=== PATIENT | male | born 1990 | race Caucasian/White ===

== ENCOUNTER 2017-02-14 22:29 | Inpatient (IN) | payer BC ==
[~2017-02-14] VITALS: Ht 180.3 cm; Wt 96.4 kg
[2017-02-14 23:00] LABS: HEMATOCRIT 45.1 % (42-52); MEAN CELL VOLUME 86.9 fL (80-100); MEAN CORPUSCULAR HEMOGLOBIN 28.1 pg (25-34); MEAN CORPUSCULAR HGB CONC 32.4 g/dl (32-36); MEAN PLATELET VOLUME 10.9 fL (7.4-10.4); PLATELET COUNT 298 K/uL (130-400); RED BLOOD COUNT 5.19 M/uL (4.7-6.1); WHITE BLOOD COUNT 5.62 K/uL (4.8-10.8)
[2017-02-14 23:26] LABS: URINE APPEARANCE CLEAR (CLEAR); URINE BILIRUBIN NEG (NEG); URINE COLOR YELLOW; URINE NITRITE NEG (NEG); URINE SPECIFIC GRAVITY 1.021 (1.000-1.030); UROBILINOGEN NEG (NEG); ZZUR CULT IF INDIC CLEAN CATCH NO
[2017-02-14 23:29] LABS: MANUAL MICROSCOPIC REQUIRED? NO; REVIEW REQ? NO
[2017-02-14 23:36] LABS: BUN/CREATININE RATIO 10.1 (10-20); CALCIUM 8.7 mg/dl (8.5-10.1); CREATININE 1.2 mg/dl (0.60-1.40); POTASSIUM 4.2 mmol/L (3.5-5.1)
[2017-02-14 23:38] LABS: ACETAMINOPHEN < 2 ug/ml (10-30)
[2017-02-14] MEDS ORDERED: BUPR-79 PO (23:40)
[2017-02-14] MEDS ORDERED: GABA-113 PO (23:40)
[2017-02-14 23:46] LABS: BENZODIAZEPINE, URINE NEG (NEG); COCAINE,URINE NEG (NEG); PHENCYCLIDINE, URINE NEG (NEG)
[2017-02-14 23:47] LABS: ALB/GLOB RATIO 1.7 (0.9-2); THYROID STIMULATING HORMONE 0.814 uIu/ml (0.300-4.500)
--- NOTE | 2017-02-14 23:51 | EMERGENCY ROOM VISIT NOTE ---
History Report prepared by Christina: Neda Foss Under the Supervision of: Dr. Mata Ventura M.D. 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 The patient states that he is prescribed gabapentin and Wellbutrin. The patient states he believes he took about 10 tablets of 300 mg Gabapentin and 4 tablets of 150 mg Wellbutrin. The patient states that when he woke up after taking the tablets he felt groggy and his pupils were dilated. The patient states that he has had suicidal ideation in the past and tried to overdose on medication about 6 months ago. He states he received inpatient treatment after his last overdose and is willing to receive inpatient treatment again. The patient states that he has been dealing with the the of family members lately and is expecting a child with his fiance causing him increased stress. The patient states he has no other medical problems such as kidney, liver, spleen or heart problems. 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 Review of Systems See HPI for pertinent positives & negatives. A total of 10 systems reviewed and were otherwise negative. Past Medical & Surgical Medical Problems: (1) Overdose Family History Patient reports no known family medical history. Social History Smoking Status: Never Smoker Marital Status: in relationship Housing Status: lives with significant other Occupation Status: employed Current/Historical Medications Scheduled Bupropion (Wellbutrin Sr), 150 MG PO DAILY Gabapentin (Neurontin), 300 MG PO BID Allergies Coded Allergies: No Known Allergies (Unverified , 02/14/17) Physical Exam Vital Signs Date Time Temp Pulse Resp B/P (MAP) Pulse Ox O2 Delivery O2 Flow Rate FiO2 02/15/17 00:32 73 16 111/70 99 Room Air 02/14/17 23:03 84 02/14/17 22:34 36.8 88 18 152/87 97 Room Air Physical Exam GENERAL: Patient is in no acute distress. HEENT: No acute trauma, normocephalic atraumatic, mucous membranes moist, no nasal congestion, no scleral icterus. Pupils are equal and reactive to light. NECK: No stridor, no adenopathy, no meningismus, trachea is midline. LUNGS: Clear to auscultation bilaterally, no wheeze, no rhonchi, breath sounds equal. HEART: Without murmurs gallops or rubs, regular rate and rhythm. ABDOMEN: Soft, nontender, bowel sounds positive, no hernias, no peritonitis. EXTREMITIES: No cyanosis or edema, full range of motion of all the joints without pain or difficulty, no signs for acute trauma. NEUROLOGIC: Oriented x 3, no acute motor or sensory deficits, no focal weakness. SKIN: No rash, no jaundice, no diaphoresis. PSYCH: Cooperative, admits to suicidal ideation and overdosing on pills earlier today. Medical Decision & Procedures Laboratory Results 02/14/17 22:51 02/14/17 22:51 Test 02/14/17 00:00 02/14/17 22:51 Urine Color YELLOW Urine Appearance CLEAR (CLEAR) Urine pH 8.0 (4.5-7.5) Urine Specific Lyndon 1.021 (1.000-1.030) Urine Protein NEG (NEG) Urine Glucose (UA) NEG (NEG) Urine Ketones NEG (NEG) Urine Occult Blood NEG (NEG) Urine Nitrite NEG (NEG) Urine Bilirubin NEG (NEG) Urine Urobilinogen NEG (NEG) Urine Leukocyte Esterase NEG (NEG) Urine Opiates Screen NEG (NEG) Urine Methadone, Qualitative NEG (NEG) Urine Barbiturates NEG (NEG) Urine Phencyclidine (PCP) Level NEG (NEG) Ur Amphetamine/Methamphetamine NEG (NEG) MDMA (Ecstasy) Screen NEG (NEG) Urine Benzodiazepines Screen NEG (NEG) Urine Cocaine Metabolite NEG (NEG) Urine Marijuana (THC) NEG (NEG) Red Blood Count 5.19 M/uL (4.7-6.1) Mean Corpuscular Volume 86.9 fL (80-100) Mean Corpuscular Hemoglobin 28.1 pg (25-34) Mean Corpuscular Hemoglobin Concent 32.4 g/dl (32-36) RDW Standard Deviation 40.2 fL (36.4-46.3) RDW Coefficient of Variation 12.5 % (11.5-14.5) Mean Platelet Volume 10.9 fL (7.4-10.4) Anion Gap 8.0 mmol/L (3-11) Est Creatinine Clear Calc Drug Dose 110.7 ml/min Estimated GFR () 96.1 Estimated GFR (Non- 83.0 BUN/Creatinine Ratio 10.1 (10-20) Calcium Level 8.7 mg/dl (8.5-10.1) Total Bilirubin 0.7 mg/dl (0.2-1) Aspartate Amino Transf (AST/SGOT) 23 U/L (15-37) Alanine Aminotransferase (ALT/SGPT) 29 U/L (12-78) Alkaline Phosphatase 110 U/L (45-117) Total Protein 7.2 gm/dl (6.4-8.2) Albumin 4.5 gm/dl (3.4-5.0) Globulin 2.7 gm/dl (2.5-4.0) Albumin/Globulin Ratio 1.7 (0.9-2) Thyroid Stimulating Hormone (TSH) 0.814 uIu/ml (0.300-4.500) Salicylates Level < 1.7 mg/dl (2.8-20) Acetaminophen Level < 2 ug/ml (10-30) Ethyl Alcohol mg/dL < 3.0 mg/dl (0-3) Laboratory results reviewed by me. ECG Indication: toxicologic Rate (beats per minute): 81 Rhythm: normal sinus Findings: no acute ischemic change, no ectopy ED Course 2248: The patient was evaluated in room C3. A complete history and physical exam was performed. 2247: I discussed the case with uSnita from the poison control center and she states there should be no problem now from what he ingested. 2347: The patient is medically cleared for psychiatric placement. The case packer states that someone from [address] [place] [address] will be down to evaluate the patient for placement. 2357: The patient was accepted at [address] [place] [address] for further inpatient psychiatric treatment. Medical Decision The patient is a 26 year old male who presents to the ED with complaints of an intentional overdose. Differential diagnoses considered include suicidal ideation, thyroid disorder, drug and alcohol abuse, electrolyte imbalance, dysrhythmia, anemia. There is no leukocytosis or concerning anemia. No significant electrolyte abnormality, kidney failure, hepatitis. The patient appears to be in a euthyroid state. Urinalysis does not show infection. Urine tox is negative. Aspirin, alcohol and Tylenol levels are undetectable. EKG shows a normal sinus rhythm, no acute ischemia, no dysrhythmia. The patient presents after ingesting extra gabapentin and Wellbutrin. This occurred around 17 or 18 hours ago and he is doing well. I did contact the poison center, he is out of the window for any issues and can be admitted directly to psychiatry. The patient was felt medically clear. He will be seen by 3 S. for resumed inpatient admission/observation. He will be brought in voluntarily. Medication Reconciliation: I attest that I have personally reviewed the patient' s current medication list. Blood Pressure Screening: Patient was found to have an elevated blood pressure and was referred to their primary doctor for recheck and further treatment. Impression Primary Impression: Suicidal ideation Additional Impression: Medication overdose Scribe Attestation The scribe's documentation has been prepared under my direction and personally reviewed by me in its entirety. I confirm that the note above accurately reflects all work, treatment, procedures, and medical decision making performed by me. Departure Information Dispostion [facility] ([address] [place] [address]) Referrals No Doctor, Assigned (PCP) Patient Instructions My [facility] Problem Qualifiers
[2017-02-15 00:32] VITALS: O2SAT 99
[2017-02-15] MEDS ORDERED: NURSING VERBAL MED ORDER ONE (00:45)
[2017-02-15 01:04] VITALS: BP 135/86; PULSE 65; TEMP 36.4; Ht 180.3 cm; Wt 96.4 kg
[2017-02-15] MEDS ORDERED: hydrOXYzine HCL 25 MG TAB PO PRN (01:45)
[2017-02-15] MEDS ORDERED: BISMUTH SUBSALICYLATE PER ML OMNICELL CHARGE PO PRN (01:45)
[2017-02-15] MEDS ORDERED: SODIUM CHLORIDE 0.65% NA SOLN 45 ML (OCEAN) PRN (01:45)
[2017-02-15] MEDS ORDERED: ALUMINUM/MAGNESIUM SUSP 30 ML UDC PO PRN (01:45)
[2017-02-15] MEDS ORDERED: MAGNESIUM HYDROXIDE SUSP 30 ML UDC PO PRN (01:45)
[2017-02-15] MEDS ORDERED: ACETAMINOPHEN 325 MG TAB PO PRN (01:45)
[2017-02-15 06:51] VITALS: BP_SYST 120; BP_DIAS 72; BP_DIAS 79; PULSE 71; PULSE 75; TEMP 36.3
--- NOTE | 2017-02-15 12:16 | Psychiatric History & Physical ---
History Date of Service Feb 15, 2017. Identifying Data Ken John is a 26-year-old male who currently lives with his fiance and her 5 year old son in [place], [place]. Ken John was admitted on a 201 voluntary commitment. Patient is admitted from home. The patient was brought to the ED family. Information provided by the patient is considered to be reliable. Chief Complaint "I took an overdose". History of Present Illness Patient reports depressed mood for the past couple weeks. He has been considering suicide "off and on" for that 2 week period. He reports stress in his relationship with his fiance who is and due in May. He works at [employer] on Wednesday, Wednesday and Wednesday from 5 pm to 5 am. After getting home from work on Wednesday morning he reports that he took an overdose of his prescribed Gabapentin 300 mg (10 pills) and Wellbutrin 150 (5 pills) in a suicide attempt. He went to bed and when he woke up, he was groggy and pupils were dilated. His fiance brought him to the ER. During the ride to the ER he reports feeling anxious and like his whole body was "tingling" and asked fiance to hurry. He endorses depressed mood, lack of interest in doing things, difficulty concentrating, low energy and motivation, difficulty sleeping (able to fall asleep but wakes up frequently during the night), feeling of hopeless since the beginning of January with worsening of the past 2 weeks and experiencing symptoms every day. He often feels anxious and worries about having a baby, his relationship with is fiance, finances. He feels like his heart is beating fast, feels short of breath, jittery and can not concentrate. 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 He was hospitalized in September 2016 at [facility] for a week after a an overdose on his prescribed medication in a suicide attempt. Before his hospitalization he was under care by a psychiatrist at [facility] in [place] since July when he was required by his [employer] unit to seek care for suicidal ideation. He was taking medication which he does not recall and used this medication in a suicide attempt in September. During his stay at [facility] he was started on Seroquel and another medication that he does not remember. He went to [address] Reyes, a psychiatrist in [place], after his hospitalization. He decided that he could no longer drive to [place] and did not want to go back to [facility] and so he saw a PCP, Dr. John, in [place], [place] one time in October and because he had gained 20 pounds on the Seroquel, he stopped taking it and was prescribed Gabapentin and Wellbutrin. He has not returned for followup with Dr. John. He initially felt like the medication was helpful but now does not believe that it was. Patient reports that he has a diagnosis of bipolar disorder and says that Dr. Reyes diagnosed bipolar disorder due to his spending a lot of money (reports spending $5000 over a 3 year period buying things on the internet including games and 2 guns) and getting upset/angry and yelling when he is anxious. Patient reports that due to his diagnosis, depression and suicidal ideation, he has not had access to guns or vehicles when he goes to [email or web address] since July and they required treatment as above. He reports that his sister has his guns and they are hidden and locked and he has no access to them. Patient does not describe classic manic symptoms and denies discrete periods of lack of need for sleep, grandiosity, increase in goal directed or risk taking behavior. He denies symptoms consistent with OCD, eating disorder. He denies history of violence toward others within the past 6 months or ever. He denies any history of [id number] behavior such as cutting or burning himself. . Past Psychiatric History Current OP Treatment: therapist ([facility] in [place] weekly since but missed last 1 or 2 appointments) Prior Psych Hospitalizations: other ([facility] in [place] September 2016 and [facility] when he was 17) Access to a Gun: No (sister has secured his guns as required by [email or web address]) Suicide Attempts: Yes Past Medication Trials [facility] when he was 17 reported started inpatient but he did not take it after being discharged from the hospital and also did not follow up with any outpatient appointments Seroquel - Gained 20 pounds in 1-2 months Lexapro? Past Medical/Surgical History History of Concussion/Seizure: No Allergies Allergies: Coded Allergies: No Known Allergies (Unverified , 02/14/17) Home Medications Scheduled Bupropion (Wellbutrin Sr), 150 MG PO DAILY Gabapentin (Neurontin), 300 MG PO BID Family History Patient reports no known family medical history. History of Suicide: No History of Substance Abuse: Yes (dad former alcoholic) Psychiatric History: No Alcohol Use Alcohol Use In Past 12 Months: No (drinks 6 pack of beer over the course of a week. Last drink a week ago. ) AUDIT Total Score: 3 Smoking Use Smoking Status: Never Smoker Substance History Patient denies use of street drugs, abuse of over the counter of prescription medications within the past 6 months or ever. Personal History Childhood: Patient when he was 5 year old. Has an sister age 30. Family lives nearby and reports that he gets along with them. Education: graduated from high school ([employer] 2008) Relationship History: other (lives with bebe and her 5 year old son from another relationship) Children: baby boy is due in May 2017 Spiritual Affiliation: none Legal History: none (denied) Psychological Trauma History: Other (loss of multiple friends (2 due to drug overdose in 2011) and 2 other friends suicide one by gunshot and one by hanging) Review of Systems Constitutional: no symptoms reported Eyes: reports: no symptoms Cardiovascular: reports: no symptoms reported Respiratory: reports: no symptoms reported Gastrointestinal: no symptoms reported Genitourinary - Male: reports: no symptoms Musculoskeletal: no symptoms reported Integumentary: no symptoms reported Neurologic: reports: no symptoms Endocrine: no symptoms Hematologic / Lymphatic: no symptoms Examination Physical Examination Physical exam by Dr. Mata Ventura performed in the ER was reviewed and accepted for our purposes on the [facility]. Vital Signs Vital Signs Past 12 Hours Date Time Temp Pulse Resp B/P (MAP) Pulse Ox O2 Delivery O2 Flow Rate FiO2 02/15/17 06:51 36.3 71 16 120/72 75 120/79 02/15/17 01:04 36.4 65 16 135/86 02/15/17 00:32 73 16 111/70 99 Room Air Laboratory Results Last 24 Hours Test 02/14/17 22:51 White Blood Count 5.62 K/uL Red Blood Count 5.19 M/uL Hemoglobin 14.6 g/dL Hematocrit 45.1 % Mean Corpuscular Volume 86.9 fL Mean Corpuscular Hemoglobin 28.1 pg Mean Corpuscular Hemoglobin Concent 32.4 g/dl RDW Standard Deviation 40.2 fL RDW Coefficient of Variation 12.5 % Platelet Count 298 K/uL Mean Platelet Volume 10.9 fL Sodium Level 147 mmol/L Potassium Level 4.2 mmol/L Chloride Level 108 mmol/L Carbon Dioxide Level 31 mmol/L Anion Gap 8.0 mmol/L Blood Urea Nitrogen 12 mg/dl Creatinine 1.20 mg/dl Est Creatinine Clear Calc Drug Dose 110.7 ml/min Estimated GFR () 96.1 Estimated GFR (Non- 83.0 BUN/Creatinine Ratio 10.1 Random Glucose 78 mg/dl Calcium Level 8.7 mg/dl Total Bilirubin 0.7 mg/dl Aspartate Amino Transf (AST/SGOT) 23 U/L Alanine Aminotransferase (ALT/SGPT) 29 U/L Alkaline Phosphatase 110 U/L Total Protein 7.2 gm/dl Albumin 4.5 gm/dl Globulin 2.7 gm/dl Albumin/Globulin Ratio 1.7 Thyroid Stimulating Hormone (TSH) 0.814 uIu/ml Salicylates Level < 1.7 mg/dl Acetaminophen Level < 2 ug/ml Ethyl Alcohol mg/dL < 3.0 mg/dl Mental Examination During interview pt is: alert and oriented Appearance: appropriately dressed, disheveled Eye contact is: good Motor behavior is: steady gait & station, no abnormal motor movements Speech: normal in rate, rhythm & volume Affect: mood congruent Mood is: depressed Thought process: goal directed, linear, logical, clear, coherent Thought content: hopelessness, guilt Suicidal thought are: present, Plan: present, Intent: present Homicidal thoughts are: denied Hallucinations: denies auditory, denies visual Cognition: memory grossly intact, language grossly intact Intelligence estimated to be: average Insight: impaired Judgement: impaired Impression / Recommendations Impression Patient is a 26 year old male with a history of depression and previous suicide attempt. He is experiencing multiple stressors including relationship problems with finance who is , deaths of multiple friends and family members over the past several years, financial stress and stress related to his service in the [employer]. He currently meets criteria for MDD, severe without psychotic features. Patient reports a history of diagnosis of bipolar disorder but does not describe symptoms associated with classic aury. He is continuing to endorse suicidal thoughts with intention to overdose if he were not in the hospital and therefore due to risk of harm to himself, he required inpatient mental health treatment. Inventory Assets Strengths: willingness for treatment, Needs: Outpatient psychiatrist and continued therapy. Risk Factors Assessment Male: Yes Access to guns: No Health problems: No Mental Health Diagnoses: Yes Substance use disorders: No Previous attempt: Yes Previous attempt;highly lethal: Yes Previous attempt; planned: Yes Family history of suicide: No Previous psychiatric stay: Yes Hopelessness: Yes Smoker: No Protective Factors Assessment Sikh beliefs: No Responsible for young children: Yes Employed: Yes Stable relationships: Yes Recommendations (1) Suicidal ideation 02/15 -Patient admitted to locked unit with q 15 minute safety checks (2) Depressive disorder 02/15 - Will obtain records from hospitalization and treatment in September of 2016. Patient reports taking seroquel and another medication. found seroquel helpful but gained 20 pounds in 1-2 months. Need additional information about past med trials. - Staff to obtain collateral information from his fiance and possibly his mother. Also would be helpful to obtain information from therapist. Patient expresses concern for bipolar disorder but does not describe symptoms consistent with manic episode and so additional information needed. - He will need a family meeting with his fiance -Encourage participation in individual and group therapy. - Will wait for record from past treatment and collateral from family before starting medication due to report of bipolar diagnosis although history not consistent with this diagnosis. (3) MANJIT (generalized anxiety disorder) 02/15 -vistaril prn for now until able to review prior records - individual and group therapy -assist patient to learn healthy coping skills. CPT Code Initial Hospital Care: [id number]
[2017-02-16 06:48] VITALS: BP_SYST 103; BP_DIAS 66; BP_DIAS 68; PULSE 53; PULSE 58; TEMP 36.7
--- NOTE | 2017-02-16 09:20 | Psychiatric Progress Notes ---
Progress Note Date of Service Feb 16, 2017. Interval History Ken John is a 26-year-old male who currently lives with his filaura and her 5 year old son in [place], [place]. Ken John was admitted on a 201 voluntary commitment. He was admitted from home after a suicide attempt by overdose on his prescribed Wellbutrin and Gabapentin. Chief Complaint "really depressed". Subjective Patient was seen & assessed interval progress reviewed with nursing. Patient spent most of his first day sleeping. He did begin to engage in unit programming on the evening shift. He is cooperative and stated that his goal is getting on the right medication. Today reports that he continues to be very depressed. He continues to have suicidal ideation but denies plan or intention. He is worried that a meeting with his fiance will cause more stress and relates the she "has been getting upset about little things lately." Explain that we generally recommend family meeting to assist with communication and help provide support for patients and that if necessary this can be done by phone. He is agreeable to a meeting at some point. Tonio works the same hours and days that the patient does at [employer]. She worked until 5 am this morning. Staff is going to call her later this morning. Spoke with patient's therapist Alonzo Lepe. Therapist reports poor compliance with appointments. Started seeing patient in July 2016 upon recommendation of patient's [employer]. Mr. Lepe sees patient as depressed and anxious (not bipolar) with cluster B traits. Therapist has release to speak with Mariah Ta who coordinated behavioral health services for the [employer]. He reports appointment compliance to her. Patient last seen by therapist on January 06. He no showed for his appointments on January 15 and February 03. Feels that patient's filaura may have influence over his compliance. Patient saw Dr. Aly John once in early December and started on Wellbutrin 150 mg. Patient reported to me that he did not feel this medication helpful and is does have significant anxiety. Today meeting with patient he agrees to start Lexapro for his depression and anxiety. Review of Systems negative except psychiatric symptoms as above Psychiatric: + depression symptoms, + anxiety Sleep Information Total Hours of Sleep: 6.00 Meal Information Percent of Breakfast Consumed: 50 Percent of Lunch Consumed: 100 Percent of Dinner Consumed: 100 Mental Status Exam During interview pt is: alert and oriented Appearance: appropriately dressed Eye contact is: good Motor behavior is: steady gait & station, no abnormal motor movements Speech: normal in rate, rhythm & volume Affect: mood congruent Mood is: depressed Thought process: goal directed, linear, logical, clear, coherent Thought content: hopelessness, guilt Suicidal thought are: present, Plan: denied, Intent: denied Homicidal thoughts are: denied Hallucinations: denies auditory, denies visual Cognition: memory grossly intact, language grossly intact Intelligence estimated to be: average Insight: impaired Judgement: impaired Impression Patient is a 26 year old male with a history of depression and previous suicide attempt. He is experiencing multiple stressors including relationship problems with finance who is , deaths of multiple friends and family members over the past several years, financial stress and stress related to his service in the [employer]. He currently meets criteria for MDD, severe without psychotic features. Patient reports a history of diagnosis of bipolar disorder but does not describe symptoms associated with classic aury. He is continuing to endorse suicidal thoughts with intention to overdose if he were not in the hospital and therefore due to risk of harm to himself, he required inpatient mental health treatment. Plan (1) Suicidal ideation 02/15 -Patient admitted to locked unit with q 15 minute safety checks (2) Depressive disorder 02/15 - Will obtain records from hospitalization and treatment in September of 2016. Patient reports taking seroquel and another medication. found seroquel helpful but gained 20 pounds in 1-2 months. Need additional information about past med trials. - Staff to obtain collateral information from his fiance and possibly his mother. Also would be helpful to obtain information from therapist. Patient expresses concern for bipolar disorder but does not describe symptoms consistent with manic episode and so additional information needed. - He will need a family meeting with his fiance -Encourage participation in individual and group therapy. - Will wait for record from past treatment and collateral from family before starting medication due to report of bipolar diagnosis although history not consistent with this diagnosis. 02/16 - supplemental information from patient's therapist Alonzo Lepe. Agrees that patient does not present as bipolar but as depressed and anxious with cluster b personality traits. He is wiling to continue working with patient even though he has poor compliance with appointments. -Start Lexapro 10 mg daily (see consent under MANJIT) (3) MANJIT (generalized anxiety disorder) 02/15 -vistaril prn for now until able to review prior records - individual and group therapy -assist patient to learn healthy coping skills. 02/16 - start Lexapro. Reviewed risks benefits and alternatives as well as black box josé miguel for suicidality. Patient accepts so will start at 10 mg daily and titrate as tolerated. -will resume gabapentin patient prescribed this for Restless leg which is is not complaining about her but it may be helpful for anxiety. Discharge / Aftercare Planning Primary Care Physician: Name: Dr John Therapist: Name: Alonzo Lepe Gravel Roofer: Name: irving Visit Code E&M Code: 10562 Inventory Assets Strengths: willingness for treatment, Needs: Outpatient psychiatrist and continued therapy. Risk Factors Assessment Male: Yes Health problems: No Mental Health Diagnoses: Yes Substance use disorders: No Previous attempt: Yes Previous attempt;highly lethal: Yes Previous attempt; planned: Yes Family history of suicide: No Previous psychiatric stay: Yes Hopelessness: Yes Smoker: No Protective Factors Assessment Moravian beliefs: No Responsible for young children: Yes Employed: Yes Stable relationships: Yes Data Vital Signs Last 24 Hrs: Date Time Temp Pulse Resp B/P (MAP) Pulse Ox O2 Delivery O2 Flow Rate FiO2 02/16/17 06:48 36.7 53 16 103/66 58 103/68 Meds Administered Last 24 Hrs: Current Inpatient Medications Medications (Trade) Dose Ordered Sig/Mariano Route Start Time Stop Time Status Last Admin Dose Admin Acetaminophen (Tylenol Tab) 650 mg Q4H PRN PO 02/15/17 01:45 03/17/17 01:44 Al Hydroxide/Mg Hydroxide (Maalox Susp) 30 ml Q4H PRN PO 02/15/17 01:45 03/17/17 01:44 Bismuth Subsalicylate (Kaopectate Liqd) 15 ml DAILY PRN PO 02/15/17 01:45 03/17/17 01:44 Magnesium Hydroxide (Milk Of Magnesia Susp) 30 ml DAILY PRN PO 02/15/17 01:45 03/17/17 01:44 Sodium Chloride ([place] Nasal [place]) PRN PRN NA 02/15/17 01:45 03/17/17 01:44 Hydroxyzine HCl (Vistaril Tab) 50 mg HSZ PRN PO 02/15/17 01:45 03/17/17 01:44 Hydroxyzine HCl (Vistaril Tab) 25 mg Q4H PRN PO 02/15/17 01:45 03/17/17 01:44
[2017-02-16] MEDS ORDERED: ESCITALOPRAM OXALATE 10 MG TAB PO ONE (11:07)
--- NOTE | 2017-02-16 14:05 | Medical Student: BHU Only ---
Psychiatric Progress Note IDENTIFYING DATA: Ken John is a 26-year-old male who currently lives in [place], [place] with his fiance and her 5 year old son Say. Ken John was admitted to the [facility] on a 201 voluntary commitment. CHIEF COMPLAINT: "feeling homesick". SUBJECTIVE: Ken, with a pertinent PMHx of anxiety, depression, and reported bipolar disorder, states that two days ago he intentionally overdosed on Wellbutrin and gabapentin after two weeks of a progressive sadness and and hopelessness. Ken notes associated symptoms of distractibility, decreased concentration, feeling depressed, having "no energy," and a significant decrease in interests. He also reports a significant decrease in appetite, noting he used to "eat a lot, but for the last week I have eaten barely nothing," but he denies any noticeable weight change. Ken reports that his current symptoms are attributable to several stresses in his life, most notably financial, his commitment to the [employer], and his fiance who is (due in May). Ken states that he has been seeing a therapist (Alonzo Lepe) weekly since July 2016, but missed his last two appointments from "feeling good, and wanting to get other things done those days." Ken notes a history of bipolar disorder as diagnosed by Dr. Reyes, prior to his [facility] in-patient stay in [place], and during follow-up appointments afterwards. He notes that he has a history of spending "excess money," and talking quickly that lead to this bipolar diagnosis. Ken states that he has a history of being "hyperactive," being goal directed, and only sleeping 4-6 hours a night at baseline. Ken denies having a "manic symptoms, " but reports that his mother and sister created a list of previous symptoms that coincided with "aury," that they showed to Dr. Reyes. Since being in-patient Ken has described feelings of anxiety, causing some GI discomfort. Ken reports that he was "nervous, hearing people in the hallway who might want to talk to him." He states that he generally keeps to himself, does not want to discuss his feelings/mood with others (specifically noting not telling his fiance about his suicidal ideations). Ken notes that now that he is in-patient he is more willing to talk to people about what has been going on , but still reports sweaty palms and some shortness of breath when being interviewed. He states that he attended group therapy today, but did not say much, mentioning that he prefers to listen to other people. Ken reports that he talked with his fiance this morning and set up a family meeting for tomorrow (02/17/2017) for 1:30pm. He said that it was "nice to hear her voice," and now reports being "homesick." Ken reports that his filaura gets "worked up" and "anxious" over the , and passes that anxiety on to him. Ken says he enjoys living with his filaura's biological son from a previous relationship and being a father figure to him. Ken talked about how his friends have tried to convince him to quit the [employer], but he still continues to want to be apart of it. He states that he makes less money during his [employer] weekends (1 weekend a month) , since he has to miss work at the [employer] during those weekends, but he it is also an "escape" for him. 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 Ken states that his father, mother, step-father, sister, and nephew all live in the area and are a good support for him. However, he notes he has not told him of his current in-patient hospital stay here. He says he "does not want to add to their burden," as his aunt 2 weeks ago, and his step-brother is currently in-patient in [place] after a recent car accident. Ken reports his goals for in-patient is to have his medications changed to better control his anxiety and depression. He states that his Wellbutrin/ Neurotin were started in October after failing Seroquel (secondary to side effect of significant weight gain of 20 pounds). He also notes his strengths in his recovery are being a "caring person," and a father figure to Say ( his bebe's 5 year old son). Ken denies current suicidal ideations, any history of homicidal ideations, decreased need for sleep, irritability, racing thoughts, pressured speech, grandiose behavior, and recent history of crying. Risk of violence to self within the last 6 months: yes, intentional overdose 2 days ago. Risk of violence to others within the last 6 months: patient denies. OBJECTIVE: sleep: 6 hours last night, but slept most of the day yesterday appetite: 65% of meals (breakfast, lunch, and dinner). CURRENT MEDICATIONS: 1. Home: a. Wellbutrin (Bupropion HCl) 150 mg daily b. Neurotin (Gabapentin) 300mg BID 2. In-patient: a. Escitalopram Oxalate (Lexapro Tab) 10mg once on 02/16/2017 PAST PSYCHIATRIC HISTORY: Current outpatient mental health treatment: therapist, Alonzo Lepe, but has not seen for 2 weeks. Prior psychiatric hospitalizations: twice for SI, once at [facility] in [place] in September 2016 (Dr. Reyes), and once at [facility] in [place] when he was 17 after breaking up with his girlfriend. Prior medication trials: Seroquel, but caused a "30 pound weight gain in 2 months." Prior suicide attempts: intentional overdose on prescription pills with in- patient psychiatric stay at [facility]. Access to weapons: patient denies. Patient reports that his weapons were secured through the [employer]. FAMILY HISTORY: Mental Health: patient states father has undiagnosed depression Suicide: patient denies Medical history: patient denies SUBSTANCE USE HISTORY: Tobacco use hx: patient chews tobacco, about 1/2 can a day for 10 years Caffeine use hx: patient drinks 2 "monsters" a day Alcohol use hx: patient drinks about one "6-pack a week" Patient denies all other substance use. ROS: 10 systems reviewed an all are negative, except as follows CONSTITUTIONAL: sweaty palms. RESPIRATORY: "anxiety related shortness of breath from talking too much" GASTROINTESTINAL: "stomach hurting from feeling anxious." MENTAL STATUS EXAM: Appearance is that of a neatly groomed casually dressed male who appears his stated age. The patient is generally very cooperative with the interview. Eye contact is good. Motor behavior is no abnormal motor movements. Speech: normal rate, normal volume, normal tone, and articulate. Affect: full, ranging from laughing/smiling to anxious when talking about his fiance/medical history. Mood: "homesick". Thought process: clear, coherent, goal directed. Thought content: reality based without delusions, denies SI, denies HI. Perception: denies illusions, denies hallucinations. Cognition: memory, language, and attention appear grossly intact. Intelligence is estimated to be average. Insight is estimated to be mostly intact as Ken realizes that he needs to get help and change his medications so he can "feel better" in time for the of his son in May. Judgment is estimated to be impaired from his decision to overdose 2 days ago, still rating his mood as 6/10 and anxious. DIAGNOSTIC IMPRESSION: Ken is 26 years old, with a PHMx of anxiety and depression, had an intentional overdose 2 days ago, associated with feeling depressed for the last two weeks. Ken reports many stress in his life, notably the upcoming of his son, financial, position in the [employer], and his anxious fiance. In his current state, he meets severe MDD criteria without psychotic features. A previous hospitalization at [facility] gave him the diagnosis of bipolar disorder, but he does not seem to specifically meet the criteria. DSM-V DIAGNOSIS: MDD and MANJIT RECOMMENDATIONS: 1. MDD with associated generalized anxiety disorder a. Start Lexapro 10 mg daily for depression and Vistaril PRN for anxiety. b. Encourage Ken to participate in group sessions c. Work on obtaining previous [facility] hospitalization records from his stay in September 2016 2. Safety a. Suicide precautions with q15min checks will be maintained to help provide for patient safety while in the hospital. 3. Aftercare Planning: a. We will contact Alonzo Lepe to coordinate out-patient care and follow-up to see if he will continue to see Ken as a patient. b. We will work on setting up out-patient psychiatric services for Ken. Date of Service: Feb 16, 2017.
[2017-02-16] MEDS: GABAPENTIN 300 MG CAP PO SCH (17:32)
[2017-02-16] MEDS: hydrOXYzine HCL 25 MG TAB PO PRN (21:18)
[2017-02-17 06:42] VITALS: BP_SYST 108; BP_SYST 140; BP_DIAS 72; BP_DIAS 81; PULSE 44; PULSE 45; TEMP 36.4
--- NOTE | 2017-02-17 08:10 | Psychiatric Progress Notes ---
Progress Note Date of Service Feb 17, 2017. Interval History Ken John is a 26-year-old male who currently lives with his fiance and her 5 year old son in [place], [place]. Ken John was admitted on a 201 voluntary commitment. He was admitted from home after a suicide attempt by overdose on his prescribed Wellbutrin and Gabapentin. Chief Complaint "[]". Subjective Patient was seen & assessed interval progress reviewed with Treatment Team. Staff report he had a meeting with his fiance yesterday, who was supportive, but stated she did not understand what he was going through. He discussed his fears that his fianc will leave him, which did not appear reality based. They discussed stress related to her , with their baby due in May. They also have financial strain, and suggestions were made for ways to locate local resources for baby items. They also discussed the stress stemming from the patient's involvement in the [employer] and his conflicted feelings about this. He currently has restrictions in that he cannot drive or carry weapons, and there are no weapons in the home. He agreed to a referral for outpatient psychiatry. His safety plan was reviewed, and his fiance agreed to hold his medications and dispense them to him. He attended more groups yesterday, and although he continued to endorse suicidal thoughts, felt safe in the hospital. Today, he states he is improving, as he is not just sleeping and avoiding things during the day. Sleep at night is fair, appetite is improving. Mood is a 6 out of 10, improved from a 3 on admission. He denies SI today. He thought his family meeting yesterday was helpful, and wants to work on coping skills. He says he is thinking he'd like to withdraw from the [employer], and plans to talk to his Commander about it. He denies side effects to meds. He continues to have anxiety daily, feels nervous, nauseated, with sweaty palms , denies specific triggers, usually lasts 30 minutes. Denies alleviating factors , has been trying "to block it all out." He took hydroxyzine for sleep last night and doesn't think it worked, as sleep was disrupted by roommate listening to music. He thinks it took him an hour to fall asleep last night, whereas at home, he falls asleep quickly. He slept well through the night however. Sleep Information Total Hours of Sleep: 7.00 Meal Information Percent of Breakfast Consumed: 50 Percent of Lunch Consumed: 100 Percent of Dinner Consumed: 100 Mental Status Exam During interview pt is: alert and oriented Appearance: appropriately dressed Eye contact is: good Motor behavior is: steady gait & station, no abnormal motor movements Speech: normal in rate, rhythm & volume Affect: mood congruent Mood is: depressed Thought process: goal directed, linear, logical, clear, coherent Thought content: hopelessness, guilt Suicidal thought are: present, Plan: denied, Intent: denied Homicidal thoughts are: denied Hallucinations: denies auditory, denies visual Cognition: memory grossly intact, language grossly intact Intelligence estimated to be: average Insight: impaired Judgement: impaired Impression Patient is a 26 year old male with a history of depression and previous suicide attempt. He is experiencing multiple stressors including relationship problems with finance who is , deaths of multiple friends and family members over the past several years, financial stress, and stress related to his service in the [employer]. He meets criteria for MDD, recurrent, severe without psychotic features. Although he reports a history of diagnosis of bipolar disorder, he does not endorse symptoms associated with classic aury. He is improving slowly here, but due to the continued risk of suicide if discharged prematurely, he requires inpatient mental health treatment. Plan (1) Suicidal ideation 02/15 -Patient admitted to locked unit with q 15 minute safety checks 02/17 -Family meeting held with kirsten yesterday, and they reviewed a safety plan to include no access to guns or medications. Kirsten agreed to hold his medications and dispense them. He is working on his discharge safety plan. (2) Depressive disorder 02/15 - Will obtain records from hospitalization and treatment in September of 2016. Patient reports taking seroquel and another medication. found seroquel helpful but gained 20 pounds in 1-2 months. Need additional information about past med trials. - Staff to obtain collateral information from his filaura and possibly his mother. Also would be helpful to obtain information from therapist. Patient expresses concern for bipolar disorder but does not describe symptoms consistent with manic episode and so additional information needed. - He will need a family meeting with his bebe - Encourage participation in individual and group therapy. - Will wait for record from past treatment and collateral from family before starting medication due to report of bipolar diagnosis although history not consistent with this diagnosis. 02/16 - supplemental information from patient's therapist Alonzo Lepe. Agrees that patient does not present as bipolar but as depressed and anxious with cluster b personality traits. He is wiling to continue working with patient even though he has poor compliance with appointments. - Start Lexapro 10 mg daily (see consent under MANJIT) 02/17 - Continue escitalopram 10 mg daily, which he is tolerating well. - Arrange follow-up with therapist and refer her for psychiatric follow-up. - The patient is considering withdrawing from the [employer]. He is aware of the process for this, and will need to meet with his commander after discharge. He will require a letter at discharge excusing him from this weekend 's drill and clearing him to return to work next week. (3) MANJIT (generalized anxiety disorder) 02/15 - vistaril prn for now until able to review prior records - individual and group therapy - assist patient to learn healthy coping skills. 02/16 - start Lexapro. Reviewed risks benefits and alternatives as well as black box josé miguel for suicidality. Patient accepts so will start at 10 mg daily and titrate as tolerated. - will resume gabapentin patient prescribed this for Restless leg which is is not complaining about her but it may be helpful for anxiety. 02/17 - Continue Lexapro and gabapentin as above. - Encourage the patient to work on behavioral techniques for managing anxiety. Discharge / Aftercare Planning Primary Care Physician: Name: Dr John Date of Appointment: Feb 23, 2017 Time of Appointment: 9:00am Therapist: Name: Alonzo Lepe Early Childhood: Name: irving Visit Code E&M Code: 69189 Inventory Assets Strengths: willingness for treatment, Needs: Outpatient psychiatrist and continued therapy. Risk Factors Assessment Male: Yes : Yes /single/: No Higher / Fall in social status: No Access to guns: No Health problems: No Mental Health Diagnoses: Yes Substance use disorders: No Previous attempt: Yes Previous attempt;highly lethal: Yes Previous attempt; planned: Yes Family history of suicide: No Previous psychiatric stay: Yes Hopelessness: Yes Smoker: No Protective Factors Assessment Islam beliefs: No : No Responsible for young children: Yes Employed: Yes Stable relationships: Yes Supportive family: Yes Good rapport with provider: Yes Data Vital Signs Last 24 Hrs: Date Time Temp Pulse Resp B/P (MAP) Pulse Ox O2 Delivery O2 Flow Rate FiO2 02/17/17 06:42 36.4 44 16 108/72 45 140/81 Meds Administered Last 24 Hrs: Meds Administered (Past 24Hrs) Medications (Trade) Dose Ordered Sig/Mariano Route Start Time Stop Time Status Last Admin Dose Admin Gabapentin (Neurontin Cap) 300 mg BID17 PO 02/16/17 17:00 03/18/17 16:59 02/16/17 17:32 300 MG Escitalopram Oxalate (Lexapro Tab) 10 mg 1107 ONCE PO 02/16/17 11:07 02/16/17 11:13 DC 02/16/17 12:05 10 MG
[2017-02-17] MEDS: GABAPENTIN 300 MG CAP PO SCH ×2 (08:57→17:37)
[2017-02-17] MEDS: ESCITALOPRAM OXALATE 10 MG TAB PO SCH (08:59)
[2017-02-17] MEDS: hydrOXYzine HCL 25 MG TAB PO PRN (21:41)
[2017-02-18 06:46] VITALS: BP_SYST 133; BP_SYST 136; BP_DIAS 78; BP_DIAS 80; PULSE 52; PULSE 53; TEMP 36.8
[2017-02-18] MEDS: ESCITALOPRAM OXALATE 10 MG TAB PO SCH (09:03)
[2017-02-18] MEDS: GABAPENTIN 300 MG CAP PO SCH ×2 (09:03→17:23)
--- NOTE | 2017-02-18 12:50 | Psychiatric Progress Notes ---
Progress Note Date of Service Feb 18, 2017. Interval History Ken John is a 26-year-old male who currently lives with his filaura and her 5 year old son in [place], [place]. Ken John was admitted on a 201 voluntary commitment. He was admitted from home after a suicide attempt by overdose on his prescribed Wellbutrin and Gabapentin. Chief Complaint "doing better". Subjective Patient was seen & assessed interval progress reviewed with nursing. Patient is engaged in treatment. He is interacting with staff and peers appropriately. Reports mood is improved and feels that family meeting was very helpful to open communication with bebe. He spoke with bebe on phone today and she was upset about a court hearing regarding custody of her child. The father of her child has been demanding more time with child after being a nonparticipant for 4 years. Patient feels they are able to manage this and he is very supportive of his fiance. 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 His mood continues to improve. He has no side effects from Lexapro which he has now had 3 doses. He denies suicidal thoughts, intention or plan. He has worked on a safety plan. He has no access to guns and bebe will manage his medications. He expresses willingness to continue therapy and have a psychiatric prescriber and to go to appointments as schedule/recommended. He slept okay but says that his back gets stiff if he is in bed longer than 6 hours. Review of Systems Musculoskeletal: + problem reported (stiff back in the morning, relieved after moving around) Sleep Information Total Hours of Sleep: 7.25 Meal Information Percent of Breakfast Consumed: 100 Percent of Lunch Consumed: 100 Percent of Dinner Consumed: 100 Mental Status Exam During interview pt is: alert and oriented Appearance: appropriately dressed Eye contact is: good Motor behavior is: steady gait & station, no abnormal motor movements Speech: normal in rate, rhythm & volume Affect: mood congruent (brighter) Mood is: depressed (but improving) Thought process: goal directed, linear, logical, clear, coherent Thought content: reality based without delusions Suicidal thought are: denied, Plan: denied, Intent: denied Homicidal thoughts are: denied Hallucinations: denies auditory, denies visual Cognition: memory grossly intact, language grossly intact Intelligence estimated to be: average Insight: impaired Judgement: impaired Impression Patient is a 26 year old male with a history of depression and previous suicide attempt. He is experiencing multiple stressors including relationship problems with finance who is , deaths of multiple friends and family members over the past several years, financial stress, and stress related to his service in the [employer]. He meets criteria for MDD, recurrent, severe without psychotic features. Although he reports a history of diagnosis of bipolar disorder, he does not endorse symptoms associated with classic aury. He is improving slowly here, but due to the continued risk of suicide if discharged prematurely, he requires inpatient mental health treatment. Plan (1) Suicidal ideation 02/15 -Patient admitted to locked unit with q 15 minute safety checks 02/17 -Family meeting held with kirsten yesterday, and they reviewed a safety plan to include no access to guns or medications. Kirsten agreed to hold his medications and dispense them. He is working on his discharge safety plan. (2) Depressive disorder 02/15 - Will obtain records from hospitalization and treatment in September of 2016. Patient reports taking seroquel and another medication. found seroquel helpful but gained 20 pounds in 1-2 months. Need additional information about past med trials. - Staff to obtain collateral information from his fiance and possibly his mother. Also would be helpful to obtain information from therapist. Patient expresses concern for bipolar disorder but does not describe symptoms consistent with manic episode and so additional information needed. - He will need a family meeting with his fiance - Encourage participation in individual and group therapy. - Will wait for record from past treatment and collateral from family before starting medication due to report of bipolar diagnosis although history not consistent with this diagnosis. 02/16 - supplemental information from patient's therapist Alonzo Lepe. Agrees that patient does not present as bipolar but as depressed and anxious with cluster b personality traits. He is wiling to continue working with patient even though he has poor compliance with appointments. - Start Lexapro 10 mg daily (see consent under MANJIT) 02/17 - Continue escitalopram 10 mg daily, which he is tolerating well. - Arrange follow-up with therapist and refer her for psychiatric follow-up. - The patient is considering withdrawing from the [employer]. He is aware of the process for this, and will need to meet with his commander after discharge. He will require a letter at discharge excusing him from this weekend 's drill and clearing him to return to work next week. 02/18 -Continue same medications. Patient previously gained 30 pounds while taking Seroquel and hasn't been able to lose it. He wishes to avoid medications that cause weight gain. Encouraged increased physical activity, portion control and eating a well balanced diet. Encouraged him to discuss concerns with outpatient prescriber. (3) MANJIT (generalized anxiety disorder) 02/15 - vistaril prn for now until able to review prior records - individual and group therapy - assist patient to learn healthy coping skills. 02/16 - start Lexapro. Reviewed risks benefits and alternatives as well as black box josé miguel for suicidality. Patient accepts so will start at 10 mg daily and titrate as tolerated. - will resume gabapentin patient prescribed this for Restless leg which is is not complaining about her but it may be helpful for anxiety. 02/17 - Continue Lexapro and gabapentin as above. - Encourage the patient to work on behavioral techniques for managing anxiety. 02/18 Continue working on coping skills Will continue Gabapentin. Patient not clear if helpful and did not understand why this medicine was prescribed. Has been taking since September. Will continue for now as to not make multiple changes at one time. If anxiety and depression improved after adequate Lexapro trial would discontinue gabapentin. Discharge / Aftercare Planning Primary Care Physician: Name: Dr John Date of Appointment: Feb 23, 2017 Time of Appointment: 9:00am Psychiatrist: Name: Dr. Bentley [facility] Date of Appointment: Feb 17, 2017 Therapist: Name: Alonzo Lepe Industrial Engineering Director: Name: irving Visit Code E&M Code: 50882 Inventory Assets Strengths: willingness for treatment, employed Needs: Outpatient psychiatrist and continued therapy. Risk Factors Assessment Male: Yes : Yes /single/: No Higher / Fall in social status: No Access to guns: No Health problems: No Mental Health Diagnoses: Yes Substance use disorders: No Previous attempt: Yes Previous attempt;highly lethal: Yes Previous attempt; planned: Yes Family history of suicide: No Previous psychiatric stay: Yes Hopelessness: Yes Smoker: No Protective Factors Assessment Synagogue beliefs: No : No Responsible for young children: Yes Employed: Yes Stable relationships: Yes Supportive family: Yes Good rapport with provider: Yes Data Vital Signs Last 24 Hrs: Date Time Temp Pulse Resp B/P (MAP) Pulse Ox O2 Delivery O2 Flow Rate FiO2 02/18/17 06:46 36.8 52 20 133/78 53 136/80 Meds Administered Last 24 Hrs: Current Inpatient Medications Medications (Trade) Dose Ordered Sig/Mariano Route Start Time Stop Time Status Last Admin Dose Admin Acetaminophen (Tylenol Tab) 650 mg Q4H PRN PO 02/15/17 01:45 03/17/17 01:44 Al Hydroxide/Mg Hydroxide (Maalox Susp) 30 ml Q4H PRN PO 02/15/17 01:45 03/17/17 01:44 Bismuth Subsalicylate (Kaopectate Liqd) 15 ml DAILY PRN PO 02/15/17 01:45 03/17/17 01:44 Magnesium Hydroxide (Milk Of Magnesia Susp) 30 ml DAILY PRN PO 02/15/17 01:45 03/17/17 01:44 Sodium Chloride ([place] Nasal [place]lin) PRN PRN NA 02/15/17 01:45 03/17/17 01:44 Hydroxyzine HCl (Vistaril Tab) 50 mg HSZ PRN PO 02/15/17 01:45 03/17/17 01:44 02/17/17 21:41 50 MG Hydroxyzine HCl (Vistaril Tab) 25 mg Q4H PRN PO 02/15/17 01:45 03/17/17 01:44 Gabapentin (Neurontin Cap) 300 mg BID17 PO 02/16/17 17:00 03/18/17 16:59 02/18/17 09:03 300 MG Escitalopram Oxalate (Lexapro Tab) 10 mg QAM PO 02/17/17 09:00 03/19/17 08:59 02/18/17 09:03 10 MG
[2017-02-18] MEDS: hydrOXYzine HCL 25 MG TAB PO PRN (21:02)
[2017-02-19 06:52] VITALS: BP_SYST 107; BP_SYST 108; BP_DIAS 66; BP_DIAS 73; PULSE 46; PULSE 50; TEMP 36.4
[2017-02-19] MEDS: ESCITALOPRAM OXALATE 10 MG TAB PO SCH (09:11)
[2017-02-19] MEDS: GABAPENTIN 300 MG CAP PO SCH (09:11)
[2017-02-19] MEDS ORDERED: LXP10 PO (10:39)
[2017-02-19] MEDS ORDERED: ATR25 PO (10:48)
--- NOTE | 2017-02-19 10:51 | Discharge Instructions ---
Discharge Information Report Includes Report will include the: Discharge Instructions & Summary Admission Admission Date / Time: Feb 15, 2017 at 00:44 Reason for Admission: Major Depressive Disorder, Recurrent Discharge Discharge Diagnosis / Problem: same Condition at Discharge: Good Discharge Goals Goal(s): Improve function, Improve disease control Activity Recommendations Activity Limitations: resume your previous activity . Instructions / Follow-Up Instructions / Follow-Up . SPECIAL CARE INSTRUCTIONS: 1. Follow through with your scheduled aftercare appointments. If unable to keep an appointment, please call to reschedule. 2. Take your medication only as prescribed. Medication should not be changed or stopped without the approval of your doctor. In the event of worsening symptoms or concerns about side effects, contact your doctor immediately. 3. Utilize new healthy coping skills, anger management skills, and stress management skills learned during your hospitalization. Journal feelings and process them with a support person. Identify stressors or situations that may result in relapse, deterioration or inappropriate behaviors and develop a plan to deal with those issues. 4. If your coping skills are ineffective and you are in crisis, contact your outpatient providers for direction. If unable to reach your providers, please call the CAN HELP LINE AT or go to the closest Emergency Room. 5. Avoid alcohol and un-prescribed drugs. 6. You have been provided with the Mental Health Advance Directives Pamphlet for your review. AFTERCARE APPOINTMENTS: * Please call your insurance company prior to your scheduled appointment to confirm your aftercare providers are covered. Take your insurance information to your appointments. . Discharge / Aftercare Planning Primary Care Physician: Name: Dr John Date of Appointment: Feb 23, 2017 Time of Appointment: 9:00am Appointment Notes: Dr. John will not be providing psychiatric meds but would like to see you Psychiatrist: Name: Dr. Bentley [facility] Date of Appointment: Feb 23, 2017 Time of Appointment: 3:30 Therapist: Name Of Therapist: Alonzo Lepe Appointment Comments: he will call you at home to offer an appointment for next week Customs Director: Name: . . Follow-Up Care Plan for Follow-Up Care: above Current Hospital Diet Patient's current hospital diet: Regular Diet Discharge Diet Recommended Diet: Regular Diet Procedures Procedures Performed: Yes List Procedure(s) Performed: EKG Pending Studies Pending Studies at Discharge: No Medical Emergencies . Who to Call and When: Medical Emergencies: For questions or emergencies related to your hospital stay, please contact the Inpatient Behavioral Health Unit at [phone]. A collar shaper operator is on-call 05/04 for the Behavioral Health Unit for emergencies At any time you feel your situation is an emergency, you may also call 911 immediately. . Non-Emergent Contact Non-Emergency issues call your: Primary Care Provider Call Non-Emergent contact if: you have any medication questions Advance Directives Existing Advance Directive: No Do You Have an Existing Mental: No Existing Living Will: No Existing Power of Program Developer: No Advance Directives Info Given: To Pt/S.O. Advance Directives Reason: Declines as Mental Health Visit. Discharge Summary Admission HPI Per the Admitting provider: Patient reports depressed mood for the past couple weeks. He has been considering suicide "off and on" for that 2 week period. He reports stress in his relationship with his fiance who is and due in May. He works at [employer] on Wednesday, Wednesday and Wednesday from 5 pm to 5 am. After getting home from work on Wednesday morning he reports that he took an overdose of his prescribed Gabapentin 300 mg (10 pills) and Wellbutrin 150 (5 pills) in a suicide attempt. He went to bed and when he woke up, he was groggy and pupils were dilated. His fiance brought him to the ER. During the ride to the ER he reports feeling anxious and like his whole body was "tingling" and asked fiance to hurry. He endorses depressed mood, lack of interest in doing things, difficulty concentrating, low energy and motivation, difficulty sleeping (able to fall asleep but wakes up frequently during the night), feeling of hopeless since the beginning of January with worsening of the past 2 weeks and experiencing symptoms every day. He often feels anxious and worries about having a baby, his relationship with is fiance, finances. He feels like his heart is beating fast, feels short of breath, jittery and can not concentrate. He relates that he feels anxious when he feels that finance is demanding and also his anxiety increases about a week before he is scheduled for his monthly [employer] weekend drill (next is this upcoming weekend). 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 He was hospitalized in September 2016 at [facility] in [place] for a week after a an overdose on his prescribed medication in a suicide attempt. Before his hospitalization he was under care by a psychiatrist at [facility] in [place] since July when he was required by his [employer] unit to seek care for suicidal ideation. He was taking medication which he does not recall and used this medication in a suicide attempt in September. During his stay at [facility] he was started on Seroquel and another medication that he does not remember. He went to [address] Reyes, a psychiatrist in [place], after his hospitalization. He decided that he could no longer drive to [place] and did not want to go back to [facility] and so he saw a PCP, Dr. John, in [place], [place] one time in October and because he had gained 20 pounds on the Seroquel, he stopped taking it and was prescribed Gabapentin and Wellbutrin. He has not returned for followup with Dr. John. He initially felt like the medication was helpful but now does not believe that it was. Patient reports that he has a diagnosis of bipolar disorder and says that Dr. Reyes diagnosed bipolar disorder due to his spending a lot of money (reports spending $5000 over a 3 year period buying things on the internet including games and 2 guns) and getting upset/angry and yelling when he is anxious. Patient reports that due to his diagnosis, depression and suicidal ideation, he has not had access to guns or vehicles when he goes to [facility] since July and they required treatment as above. He reports that his sister has his guns and they are hidden and locked and he has no access to them. Patient does not describe classic manic symptoms and denies discrete periods of lack of need for sleep, grandiosity, increase in goal directed or risk taking behavior. He denies symptoms consistent with OCD, eating disorder. He denies history of violence toward others within the past 6 months or ever. He denies any history of [id number] behavior such as cutting or burning himself. . Hospital Course (1) Suicidal ideation / -Patient admitted to [facility] unit with q 15 minute safety checks 02/17 -Family meeting held with kirsten yesterday, and they reviewed a safety plan to include no access to guns or medications. Kirsten agreed to hold his medications and dispense them. He is working on his discharge safety plan. (2) Depressive disorder 02/15 - Will obtain records from hospitalization and treatment in September of 2016. Patient reports taking seroquel and another medication. found seroquel helpful but gained 20 pounds in 1-2 months. Need additional information about past med trials. - Staff to obtain collateral information from his fiance and possibly his mother. Also would be helpful to obtain information from therapist. Patient expresses concern for bipolar disorder but does not describe symptoms consistent with manic episode and so additional information needed. - He will need a family meeting with his filaura - Encourage participation in individual and group therapy. - Will wait for record from past treatment and collateral from family before starting medication due to report of bipolar diagnosis although history not consistent with this diagnosis. 02/16 - supplemental information from patient's therapist Alonzo Lepe. Agrees that patient does not present as bipolar but as depressed and anxious with cluster b personality traits. He is wiling to continue working with patient even though he has poor compliance with appointments. - Start Lexapro 10 mg daily (see consent under MANJIT) 02/17 - Continue escitalopram 10 mg daily, which he is tolerating well. - Arrange follow-up with therapist and refer her for psychiatric follow-up. - The patient is considering withdrawing from the [employer]. He is aware of the process for this, and will need to meet with his commander after discharge. He will require a letter at discharge excusing him from this weekend 's drill and clearing him to return to work next week. 02/18 -Continue same medications. Patient previously gained 30 pounds while taking Seroquel and hasn't been able to lose it. He wishes to avoid medications that cause weight gain. Encouraged increased physical activity, portion control and eating a well balanced diet. Encouraged him to discuss concerns with outpatient prescriber. (3) MANJIT (generalized anxiety disorder) 02/15 - vistaril prn for now until able to review prior records - individual and group therapy - assist patient to learn healthy coping skills. 02/16 - start Lexapro. Reviewed risks benefits and alternatives as well as black box josé miguel for suicidality. Patient accepts so will start at 10 mg daily and titrate as tolerated. - will resume gabapentin patient prescribed this for Restless leg which is is not complaining about her but it may be helpful for anxiety. 02/17 - Continue Lexapro and gabapentin as above. - Encourage the patient to work on behavioral techniques for managing anxiety. 02/18 Continue working on coping skills Will continue Gabapentin. Patient not clear if helpful and did not understand why this medicine was prescribed. Has been taking since September. Will continue for now as to not make multiple changes at one time. If anxiety and depression improved after adequate Lexapro trial would discontinue gabapentin. Risk Factors Assessment Male: Yes : Yes /single/: No Higher / Fall in social status: No Access to guns: No Health problems: No Mental Health Diagnoses: Yes Substance use disorders: No Previous attempt: Yes Previous attempt;highly lethal: Yes Previous attempt; planned: Yes Family history of suicide: No Previous psychiatric stay: Yes Hopelessness: Yes Smoker: No Protective Factors Assessment Yarsani beliefs: No : No Responsible for young children: Yes Employed: Yes Stable relationships: Yes Supportive family: Yes Good rapport with provider: Yes Day of Discharge Assessment Ken is requesting discharge, he is smiling and happy to spend time with his fiance. He is committed to keeping his outpatient appointments. He is future focussed re: the . His thoughts of organized and he denies SI/HI/ leon. He is relieved to have ongoing leave from [employer]. Verbalized safety plan. Laboratory Test 02/14/17 00:00 02/14/17 22:51 Urine Color YELLOW Urine Appearance CLEAR Urine pH 8.0 Urine Specific [place] 1.021 Urine Protein NEG Urine Glucose (UA) NEG Urine Ketones NEG Urine Occult Blood NEG Urine Nitrite NEG Urine Bilirubin NEG Urine Urobilinogen NEG Urine Leukocyte Esterase NEG Urine Opiates Screen NEG Urine Methadone, Qualitative NEG Urine Barbiturates NEG Urine Phencyclidine (PCP) Level NEG Ur Amphetamine/Methamphetamine NEG MDMA (Ecstasy) Screen NEG Urine Benzodiazepines Screen NEG Urine Cocaine Metabolite NEG Urine Marijuana (THC) NEG White Blood Count 5.62 Red Blood Count 5.19 Hemoglobin 14.6 Hematocrit 45.1 Mean Corpuscular Volume 86.9 Mean Corpuscular Hemoglobin 28.1 Mean Corpuscular Hemoglobin Concent 32.4 RDW Standard Deviation 40.2 RDW Coefficient of Variation 12.5 Platelet Count 298 Mean Platelet Volume 10.9 Sodium Level 147 Potassium Level 4.2 Chloride Level 108 Carbon Dioxide Level 31 Anion Gap 8.0 Blood Urea Nitrogen 12 Creatinine 1.20 Est Creatinine Clear Calc Drug Dose 110.7 Estimated GFR () 96.1 Estimated GFR (Non- 83.0 BUN/Creatinine Ratio 10.1 Random Glucose 78 Calcium Level 8.7 Total Bilirubin 0.7 Aspartate Amino Transferase (AST) 23 Alanine Aminotransferase (ALT) 29 Alkaline Phosphatase 110 Total Protein 7.2 Albumin 4.5 Globulin 2.7 Albumin/Globulin Ratio 1.7 Thyroid Stimulating Hormone (TSH) 0.814 Salicylates Level < 1.7 Acetaminophen Level < 2 Ethyl Alcohol mg/dL < 3.0 Total Time Total Time Spent (min): Greater than 30 minutes Total Time Included: examination of the patient, discharge planning, medication reconciliation Tobacco Cessation at Discharge Smoking Status: Never Smoker FDA approved Prescription: non-smoker
== END 2017-02-19 13:35 | disposition home or self-care (01) | DRG 885 ==
LOC: C.EDB 22:33 → C.MHU 02-15 00:44
PROVIDERS: ADMIT Psychiatry & Neurology Child & Adolescent Psychiatry; ATTEND Psychiatry & Neurology Psychiatry
DX: F33.9 Major depressive disorder, recurrent, unspecified (principal); F41.1 Generalized anxiety disorder; T14.91 Suicide attempt; T43.292A Poisoning by other antidepressants, intentional self-harm, initial encounter; T42.6X2A Poisoning by other antiepileptic and sedative-hypnotic drugs, intentional self-harm, initial encounter; Z79.899 Other long term (current) drug therapy; X83.8XXA Intentional self-harm by other specified means, initial encounter